=== PATIENT | male | born 1950 | race Caucasian/White ===

== ENCOUNTER 2017-12-21 06:16 | Day surgery (SDC) | payer MEDICARE ==
[~2017-12-21] VITALS: Ht 185.4 cm; Wt 86.2 kg
[2017-12-21] MEDS ORDERED: LACTATED RINGERS 1,000 ML IV SCH (07:45)
[2017-12-21] MEDS ORDERED: METO100T16 PO (08:16)
[2017-12-21] MEDS ORDERED: HYDR-4009 PO (08:16)
[2017-12-21] MEDS ORDERED: LIDOCAINE HCL/PF 1% 10 MG/ML 5ML VIAL ONE ×2 (09:16→09:31)
[2017-12-21] MEDS ORDERED: NORMAL SALINE 0.9% 10 ML SYR ONE (09:17)
[2017-12-21] MEDS ORDERED: BUPIVACAINE HCL/PF 0.5% (5MG/ML) 10ML ONE (09:17)
[2017-12-21] MEDS ORDERED: BACITRACIN 50,000 UNITS/VIAL ONE (09:17)
[2017-12-21] MEDS ORDERED: SKIN ADHESIVE 0.7 GM EA TOP ONE (09:17)
[2017-12-21] MEDS ORDERED: FENTANYL CITRATE/PF 50MCG/ML 2ML VIAL ONE (09:30)
[2017-12-21] MEDS ORDERED: DEXAMETHASONE 4MG/ML 1ML VIAL ONE (09:31)
[2017-12-21] MEDS ORDERED: MIDAZOLAM HCL 2 MG/2 ML VIAL ONE (09:31)
[2017-12-21] MEDS ORDERED: NEOSTIGMINE METHYLSULFATE 1MG/ML 10 ML VIAL ONE (09:31)
[2017-12-21] MEDS ORDERED: ROCURONIUM BROMIDE 10MG/ML VIAL 5ML IV ONE (09:31)
[2017-12-21] MEDS ORDERED: PROPOFOL 200MG/20ML VIAL IV ONE (09:31)
[2017-12-21] MEDS ORDERED: GLYCOPYRROLATE 0.2 MG/ML 2ML VIAL ONE (09:31)
[2017-12-21] MEDS ORDERED: PHENYLEPHRINE HCL 10 MG/ML 1ML (IV VIAL) IV ONE (09:31)
[2017-12-21] MEDS ORDERED: EPHEDRINE SULFATE 50MG/ML VIAL ONE (09:31)
[2017-12-21] MEDS ORDERED: ONDANSETRON HCL 4MG/2ML VIAL ONE (09:32)
[2017-12-21] MEDS ORDERED: KETOROLAC 30MG/ML VIAL IV NR (13:15)
[2017-12-21 13:52] VITALS: BP 149/77
[2017-12-21] MEDS ORDERED: SODIUM CHLORIDE 0.9% 1,000 ML IV ONE (14:07)
[2017-12-21] MEDS ORDERED: HYDROMORPHONE HCL/PF 2MG/ML CPJ IV PRN (14:15)
[2017-12-21] MEDS ORDERED: ONDANSETRON HCL 4MG/2ML VIAL IV PRN (14:15)
[2017-12-21] MEDS ORDERED: MORPHINE SULFATE 2 MG/ML CPJ (NOT FOR IM USE) IV PRN (14:15)
[2017-12-21] MEDS ORDERED: MEPERIDINE HCL/PF 25MG/ML CPJ IV PRN (14:15)
== END 2017-12-21 15:00 | disposition home or self-care (01) ==
LOC: OR 06:16
PROVIDERS: ATTEND Specialist
DX: K40.20 Bilateral inguinal hernia, without obstruction or gangrene, not specified as recurrent (principal); D17.6 Benign lipomatous neoplasm of spermatic cord; I10 Essential (primary) hypertension; Z79.899 Other long term (current) drug therapy; Z88.0 Allergy status to penicillin
CPT/HCPCS: 49505; 88304; A4216; C1781; G0168; J1100; J1885; J2250; J2370; J2405; J2710; J3010; J3490; J7120; J2704